=== PATIENT | male | born 1940 | race Two or more races ===

== ENCOUNTER → 2022-01-19 | Outpatient (CLI) | payer OTHER ==
[2022-01-19 08:38] LABS: Basophils # (auto) 0 10 ^3/uL (0-0.2); Basophils % (auto) 0.7 % (0.0-2.0); Lymphocytes # (auto) 0.9 10 ^3/uL (0.4-5.4); Mean Corpuscular Hgb Conc. 35.2 g/dL (32.0-36.0); Neutrophils # (auto) 4.1 10 ^3/uL (1.6-8.6); Nucleated Red Blood Cells % 0.1 %
[2022-01-19 08:40] LABS: Eosinophils # (auto) 0.3 10 ^3/uL (0-0.8); Eosinophils % (auto) 4.4 % (0.0-7.0); Hematocrit 43.7 % (41.0-53.0); Hemoglobin 15.4 g/dL (13.5-17.5); Lymphocytes % (auto) 15.8 % (10.0-50.0); Mean Corpuscular Hemoglobin 35.1 pg (28.0-32.0); Mean Corpuscular Volume 99.7 fL (80.0-100.0); Monocytes # (auto) 0.6 10 ^3/uL (0-1.3); Monocytes % (auto) 9.5 % (0.0-12.0); Neutrophils % (auto) 69.6 % (37.0-80.0); Red Blood Cells 4.38 10^6/uL (4.5-5.90); Red Cell Distribution Width 13.1 % (11.8-14.3); White Blood Cell 5.9 10^3/uL (4.4-10.8)
[2022-01-19 09:09] LABS: Calcium 9.5 mg/dL (8.5-10.1); Potassium 4.2 mmol/L (3.5-5.1)
[2022-01-19 09:15] LABS: Bilirubin, Total 0.5 mg/dL (0.2-1.0); Total Protein 7.4 g/dL (6.4-8.2)
== END | disposition home or self-care (01) ==
LOC: LAB 08:20
PROVIDERS: ATTEND Internal Medicine
DX: E55.9 Vitamin D deficiency, unspecified (principal)
CPT/HCPCS: 36415; 80053; 80061; 82306; 84443; 85025

== ENCOUNTER 2022-08-14 16:20 | Inpatient (IN) | payer OTHER ==
[~2022-08-14] VITALS: Ht 172.7 cm; Wt 91.0 kg
[2022-08-14 17:31] LABS: Eosinophils # (auto) 0.1 10 ^3/uL (0-0.8); Lymphocytes # (auto) 1.1 10 ^3/uL (0.4-5.4); Neutrophils # (auto) 5.4 10 ^3/uL (1.6-8.6)
[2022-08-14 17:34] LABS: Basophils # (auto) 0.2 10 ^3/uL (0-0.2); Basophils % (auto) 3.1 % (0.0-2.0); Eosinophils % (auto) 1.6 % (0.0-7.0); Hematocrit 25.1 % (41.0-53.0); Hemoglobin 8.9 g/dL (13.5-17.5); Lymphocytes % (auto) 13.6 % (10.0-50.0); Mean Corpuscular Hemoglobin 36.4 pg (28.0-32.0); Mean Corpuscular Hgb Conc. 35.5 g/dL (32.0-36.0); Mean Corpuscular Volume 102.5 fL (80.0-100.0); Monocytes # (auto) 1.1 10 ^3/uL (0-1.3); Monocytes % (auto) 14.1 % (0.0-12.0); Neutrophils % (auto) 67.6 % (37.0-80.0); Nucleated Red Blood Cells % 0.3 %; Red Blood Cells 2.45 10^6/uL (4.5-5.90); Red Cell Distribution Width 18.2 % (11.8-14.3)
[2022-08-14 17:41] LABS: Albumin 3.2 g/dL (3.4-5.0); Calcium 7.6 mg/dL (8.5-10.1); Potassium 4.6 mmol/L (3.5-5.1)
[2022-08-14 17:45] LABS: BUN/Creatinine Ratio 16.5 (10.0-20.0); Bilirubin, Total 0.8 mg/dL (0.2-1.0); Total Protein 5.7 g/dL (6.4-8.2)
[2022-08-14] MEDS ORDERED: SODIUM CHLORIDE 0.9% 1,000 ML IV ONE (18:00)
[2022-08-14 20:09] LABS: Urine WBC None Seen /hpf (0 - 3)
[2022-08-14] MEDS ORDERED: SODIUM CHLORIDE 0.9% 1,000 ML IV SCH (20:30)
[2022-08-14 20:31] LABS: Urine Bacteria FEW /hpf (None Seen); Urine Blood Negative /uL (Negative); Urine Mucus FEW (None Seen); Urine Specific Gravity 1.004 (1.001-1.035)
[2022-08-14] MEDS ORDERED: AMLO-496 PO (20:32)
[2022-08-14] MEDS ORDERED: AMOX500C2 PO (20:32)
[2022-08-14] MEDS ORDERED: IBUP600T28 PO (20:32)
[2022-08-14] MEDS ORDERED: IRBE150T49 (20:32)
[2022-08-14] MEDS ORDERED: FUR20T PO (20:32)
[2022-08-14] MEDS ORDERED: MET25T (20:32)
[2022-08-14 21:36] LABS: Cholesterol 88 mg/dL (< 200)
[2022-08-14 21:37] LABS: Alcohol, Urine < 3.0 mg/dL (0-10); Amphetamine Screen, Urine NEGATIVE (NEGATIVE); Barbiturate Scree,Urine NEGATIVE (NEGATIVE); Benzodiazephine Screen, Urine NEGATIVE (NEGATIVE); Cannabinoid Screen, Urine NEGATIVE (NEGATIVE); Cocaine Screen, Urine NEGATIVE (NEGATIVE); Opiate Scree,Urine NEGATIVE (NEGATIVE); Phencyclidine Screen, Urine NEGATIVE (NEGATIVE)
[2022-08-14 21:41] LABS: HDL Cholesterol 5 mg/dL (40-59); Triglycerides 619 mg/dL (< 150)
[2022-08-15] MEDS ORDERED: ALBUTEROL SULF 2.5 MG/0.5ML(0.5%) NEB SOLN ONE (03:35)
[2022-08-15 03:50] VITALS: BP 118/49
[2022-08-15] MEDS: ALBUTEROL SULF 2.5 MG/0.5ML(0.5%) NEB SOLN NEB PRN ×3 (03:50→19:26)
[2022-08-15 07:21] LABS: Hemoglobin 9.4 g/dL (13.5-17.5); Red Blood Cells 2.54 10^6/uL (4.5-5.90); White Blood Cell 9.2 10^3/uL (4.4-10.8)
[2022-08-15 07:24] LABS: Hematocrit 26.6 % (41.0-53.0); Mean Corpuscular Hemoglobin 36.9 pg (28.0-32.0); Mean Corpuscular Hgb Conc. 35.3 g/dL (32.0-36.0); Mean Corpuscular Volume 104.5 fL (80.0-100.0); Red Cell Distribution Width 18.1 % (11.8-14.3)
[2022-08-15 07:26] LABS: Band Neutrophils % (manual) 0; Basophils % (manual) 0 (0.0-2.0); Blast Cells 0; Metamyelocytes % 0; Myelocytes % 0; Promyelocytes % 0; Reactive Lymphocytes 0
[2022-08-15 07:46] LABS: Albumin 3.3 g/dL (3.4-5.0); Calcium 7.8 mg/dL (8.5-10.1); Potassium 4.7 mmol/L (3.5-5.1)
[2022-08-15 07:50] LABS: Bilirubin, Total 1.1 mg/dL (0.2-1.0); Total Protein 5.8 g/dL (6.4-8.2)
[2022-08-15 08:18] LABS: Eosinophils % (manual) 4 (0-7); Lymphocytes % (manual) 19 (10.0-50.0); Monocytes % (manual) 10 (0-12)
[2022-08-15] MEDS ORDERED: ENOXAPARIN SOD 40 MG/0.4 ML SYRINGE SC SCH (10:00)
[2022-08-15] MEDS ORDERED: levoFLOXacin 500 MG TAB PO ONE (10:45)
[2022-08-15] MEDS ORDERED: FUROSEMIDE 40 MG/4 ML VIAL IV ONE (10:45)
[2022-08-15 11:25] LABS: Protein, Urine 24.1 mg/dL (0.0-11.9)
[2022-08-15] MEDS: guaiFENesin-CODEINE Liq 5 ML UD PO PRN (17:56)
[2022-08-15 18:12] LABS: Calcium 8.1 mg/dL (8.5-10.1); Potassium 4.3 mmol/L (3.5-5.1)
[2022-08-15] MEDS: METOPROLOL SUCCINATE XL 50 MG TAB PO SCH (18:23)
[2022-08-15] MEDS: amLODIPine BESYLATE 5 MG TAB PO SCH (18:24)
[2022-08-15] MEDS: FUROSEMIDE 20 MG TAB PO SCH (18:24)
[2022-08-15] MEDS: ACETAMINOPHEN 325 MG TAB PO PRN (20:29)
[2022-08-16] MEDS: guaiFENesin-CODEINE Liq 5 ML UD PO PRN (01:02)
[2022-08-16 07:08] VITALS: BP 141/69
[2022-08-16 07:24] LABS: Potassium 5.1 mmol/L (3.5-5.1)
[2022-08-16 07:25] LABS: BUN/Creatinine Ratio 15.2 (10.0-20.0); Magnesium 2.6 mg/dL (1.6-2.6)
[2022-08-16 09:00] VITALS: BP 104/52
[2022-08-16] MEDS: FUROSEMIDE 20 MG TAB PO SCH (10:00)
[2022-08-16] MEDS: METOPROLOL SUCCINATE XL 50 MG TAB PO SCH (10:00)
[2022-08-16] MEDS ORDERED: levoFLOXacin 500 MG TAB PO SCH (10:00)
[2022-08-16] MEDS: amLODIPine BESYLATE 5 MG TAB PO SCH (10:00)
[2022-08-16 13:00] VITALS: BP 119/53
[2022-08-16 16:50] VITALS: BP 112/51
[2022-08-16] MEDS ORDERED: ALBUAER3 IN (17:28)
[2022-08-16] MEDS: ACETAMINOPHEN 325 MG TAB PO PRN (19:00)
[2022-08-16 19:51] VITALS: BP 141/69
== END 2022-08-16 20:43 | disposition home or self-care (01) | DRG 640 ==
LOC: ER 16:20 → OVERFLOW 20:30 → WEST WING 08-16 04:35
PROVIDERS: ADMIT Nurse Practitioner Family; ATTEND Internal Medicine
DX: E87.1 Hypo-osmolality and hyponatremia (principal); I50.41 Acute combined systolic (congestive) and diastolic (congestive) heart failure; E46 Unspecified protein-calorie malnutrition; R63.1 Polydipsia; I11.0 Hypertensive heart disease with heart failure; I08.0 Rheumatic disorders of both mitral and aortic valves; R73.9 Hyperglycemia, unspecified; R82.4 Acetonuria; E83.51 Hypocalcemia; F03.90 Unspecified dementia, unspecified severity, without behavioral disturbance, psychotic disturbance, mood disturbance, and anxiety; D75.89 Other specified diseases of blood and blood-forming organs; D69.6 Thrombocytopenia, unspecified; D64.9 Anemia, unspecified; Z68.30 Body mass index [BMI] 30.0-30.9, adult
CPT/HCPCS: 36415; 71045; 71250; 80048; 80053; 80061; 80307; 81001; 82140; 82570; 82607; 82962; 83036; 83605; 83735; 83880; 83930; 83935; 84156; 84300; 84443; 84484; 84550; 85007; 85025; 85027; 93005; 93306; 93886; 94640; 96360; 97163; 99291; G0378

== ENCOUNTER → 2022-08-22 | Outpatient (CLI) | payer OTHER ==
[~2022-08-22] MED LIST: ALBUAER3 IN; AMLO1TAB23 PO; FUR20T PO; IRBE150T49; MET25T
[2022-08-22 12:14] LABS: Potassium 4.1 mmol/L (3.5-5.1)
[2022-08-22 12:20] LABS: BUN/Creatinine Ratio 20.1 (10.0-20.0); Calcium 8.2 mg/dL (8.5-10.1)
== END | disposition home or self-care (01) ==
LOC: LAB 11:19
PROVIDERS: ATTEND Internal Medicine
DX: E87.1 Hypo-osmolality and hyponatremia (principal)
CPT/HCPCS: 36415; 80048

== ENCOUNTER → 2022-09-04 | Outpatient (CLI) | payer OTHER ==
[2022-09-04 12:40] LABS: Potassium 4.1 mmol/L (3.5-5.1)
[2022-09-04 12:47] LABS: Albumin 3.1 g/dL (3.4-5.0); BUN/Creatinine Ratio 16.7 (10.0-20.0); Bilirubin, Total 0.7 mg/dL (0.2-1.0); Calcium 8.4 mg/dL (8.5-10.1); Total Protein 5.6 g/dL (6.4-8.2)
== END | disposition home or self-care (01) ==
LOC: LAB 11:55
PROVIDERS: ATTEND Internal Medicine
DX: E87.1 Hypo-osmolality and hyponatremia (principal); E83.50 Unspecified disorder of calcium metabolism
CPT/HCPCS: 36415; 80053

== ENCOUNTER 2022-09-17 23:06 | Inpatient (IN) | payer OTHER ==
[~2022-09-17] VITALS: Ht 170.2 cm; Wt 114.9 kg
[2022-09-18] VITALS (7 sets, daily range): BP systolic 89–125; BP diastolic 40–84
[2022-09-18 05:56] LABS: Hematocrit 25.8 % (41.0-53.0); Hemoglobin 8.7 g/dL (13.5-17.5); Mean Corpuscular Hemoglobin 36.2 pg (28.0-32.0); Mean Corpuscular Hgb Conc. 33.6 g/dL (32.0-36.0); Mean Corpuscular Volume 107.6 fL (80.0-100.0); White Blood Cell 14.9 10^3/uL (4.4-10.8)
[2022-09-18 06:02] LABS: Red Cell Distribution Width 23.5 % (11.8-14.3)
[2022-09-18 06:03] LABS: Basophils % (manual) 0 (0.0-2.0); Blast Cells 0; Promyelocytes % 0; Reactive Lymphocytes 0
[2022-09-18 06:14] LABS: Albumin 3.2 g/dL (3.4-5.0); Calcium 8.3 mg/dL (8.5-10.1); Potassium 4.8 mmol/L (3.5-5.1)
[2022-09-18 06:18] LABS: BUN/Creatinine Ratio 18.5 (10.0-20.0); Bilirubin, Total 1.2 mg/dL (0.2-1.0); Total Protein 5.1 g/dL (6.4-8.2)
[2022-09-18] MEDS: ALBUTEROL SULF 2.5 MG/0.5ML(0.5%) NEB SOLN NEB PRN ×2 (07:59→11:27)
[2022-09-18 08:27] LABS: Band Neutrophils % (manual) 7; Eosinophils % (manual) 1 (0-7); Lymphocytes % (manual) 7 (10.0-50.0); Metamyelocytes % 7; Monocytes % (manual) 11 (0-12); Myelocytes % 5
[2022-09-18] MEDS ORDERED: PANTOPRAZOLE 40 MG TAB PO SCH (10:00)
[2022-09-18 10:58] LABS: % Iron Saturation 15.7 % (20-55)
[2022-09-18] MEDS: SERTRALINE HCL 50 MG TAB PO SCH (11:09)
[2022-09-18] MEDS: amLODIPine BESYLATE 5 MG TAB PO SCH (11:10)
[2022-09-18] MEDS: FUROSEMIDE 20 MG TAB PO SCH (11:11)
[2022-09-18] MEDS: METOPROLOL SUCCINATE XL 50 MG TAB PO SCH (11:11)
[2022-09-18] MEDS ORDERED: cefTRIAXone 1GM/50ML D5W 50 ML IV ONE (11:15)
[2022-09-18] MEDS ORDERED: LACTULOSE 20Gm/30ML SOLN PO ONE (11:15)
[2022-09-18] MEDS: ACETAMINOPHEN 325 MG TAB PO PRN (11:20)
[2022-09-18] MEDS: SODIUM CHLORIDE 0.9% 1,000 ML IV SCH (11:25)
[2022-09-18 11:31] LABS: Folate (Folic Acid) > 24.00 ng/mL (5.38-24)
[2022-09-18 16:37] LABS: Urine Bacteria NONE SEEN /hpf (None Seen); Urine Blood Negative /uL (Negative); Urine Hyaline Cast FEW /lpf (0 - 2); Urine Mucus FEW (None Seen); Urine Specific Gravity 1.016 (1.001-1.035); Urine WBC 2 /hpf (0 - 3)
[2022-09-18 16:57] LABS: Creatinine, Urine 100 mg/dL (30.0-125.0); Sodium Urine 34 mmol/L (40-220)
[2022-09-19] VITALS (7 sets, daily range): BP systolic 85–129; BP diastolic 30–78
[2022-09-19] MEDS: ACETAMINOPHEN 325 MG TAB PO PRN ×2 (02:29→12:55)
[2022-09-19] MEDS: SODIUM CHLORIDE 0.9% 1,000 ML IV SCH ×4 (04:17→21:15)
[2022-09-19 05:57] LABS: White Blood Cell 12.6 10^3/uL (4.4-10.8)
[2022-09-19 05:59] LABS: Hematocrit 23.4 % (41.0-53.0); Hemoglobin 7.8 g/dL (13.5-17.5); Mean Corpuscular Hemoglobin 35.9 pg (28.0-32.0); Mean Corpuscular Hgb Conc. 33.5 g/dL (32.0-36.0); Red Blood Cells 2.18 10^6/uL (4.5-5.90)
[2022-09-19 06:03] LABS: Red Cell Distribution Width 23.8 % (11.8-14.3)
[2022-09-19 06:04] LABS: Band Neutrophils % (manual) 0; Basophils % (manual) 0 (0.0-2.0); Blast Cells 0; Metamyelocytes % 0; Promyelocytes % 0; Reactive Lymphocytes 0
[2022-09-19 06:14] LABS: Calcium 7.8 mg/dL (8.5-10.1); Potassium 4.4 mmol/L (3.5-5.1)
[2022-09-19 06:19] LABS: Albumin 2.8 g/dL (3.4-5.0); BUN/Creatinine Ratio 21.3 (10.0-20.0); Bilirubin, Total 1.1 mg/dL (0.2-1.0); Magnesium 3.1 mg/dL (1.6-2.6)
[2022-09-19 08:39] LABS: Eosinophils % (manual) 1 (0-7); Lymphocytes % (manual) 25 (10.0-50.0); Monocytes % (manual) 9 (0-12); Myelocytes % 1
[2022-09-19] MEDS: cefTRIAXone 1GM/50ML D5W 50 ML IV SCH (08:54)
[2022-09-19] MEDS: amLODIPine BESYLATE 5 MG TAB PO SCH (08:56)
[2022-09-19] MEDS: SERTRALINE HCL 50 MG TAB PO SCH (08:56)
[2022-09-19] MEDS: FUROSEMIDE 20 MG TAB PO SCH (08:57)
[2022-09-19] MEDS: METOPROLOL SUCCINATE XL 50 MG TAB PO SCH (08:57)
[2022-09-19] MEDS ORDERED: PANTOPRAZOLE 40 MG TAB PO SCH (10:00)
[2022-09-19] MEDS ORDERED: LACTULOSE 20Gm/30ML SOLN PO ONE (10:00)
[2022-09-19] MEDS ORDERED: SODIUM CHLORIDE 0.9% 500 ML IV ONE (16:30)
[2022-09-19] MEDS ORDERED: FUROSEMIDE 40 MG/4 ML VIAL IV ONE (20:15)
[2022-09-19 20:33] LABS: Basophils # (auto) 1.6 10 ^3/uL (0-0.2); Basophils % (auto) 14.3 % (0.0-2.0); Eosinophils # (auto) 0.1 10 ^3/uL (0-0.8); Eosinophils % (auto) 1.2 % (0.0-7.0); Hematocrit 23.3 % (41.0-53.0); Hemoglobin 7.7 g/dL (13.5-17.5); Lymphocytes # (auto) 1.8 10 ^3/uL (0.4-5.4); Lymphocytes % (auto) 15.6 % (10.0-50.0); Mean Corpuscular Hemoglobin 35.6 pg (28.0-32.0); Mean Corpuscular Hgb Conc. 33.2 g/dL (32.0-36.0); Mean Corpuscular Volume 107.5 fL (80.0-100.0); Monocytes # (auto) 2.1 10 ^3/uL (0-1.3); Monocytes % (auto) 18.4 % (0.0-12.0); Neutrophils # (auto) 5.7 10 ^3/uL (1.6-8.6); Neutrophils % (auto) 50.5 % (37.0-80.0); Nucleated Red Blood Cells % 0.5 %; Red Blood Cells 2.17 10^6/uL (4.5-5.90); Red Cell Distribution Width 23.6 % (11.8-14.3); White Blood Cell 11.3 10^3/uL (4.4-10.8)
[2022-09-19 20:49] LABS: Albumin 2.9 g/dL (3.4-5.0); Calcium 7.6 mg/dL (8.5-10.1)
[2022-09-19 20:52] LABS: BUN/Creatinine Ratio 23.3 (10.0-20.0); Total Protein 4.9 g/dL (6.4-8.2)
[2022-09-19] MEDS: PANTOPRAZOLE 40 MG TAB PO SCH (22:32)
[2022-09-19] MEDS: ALBUTEROL SULF 2.5 MG/0.5ML(0.5%) NEB SOLN NEB PRN (23:15)
[2022-09-20 05:00] VITALS: BP 98/40
[2022-09-20 05:49] VITALS: BP 122/56
[2022-09-20 05:53] LABS: Hematocrit 23.5 % (41.0-53.0); Hemoglobin 7.9 g/dL (13.5-17.5); Mean Corpuscular Hemoglobin 35.7 pg (28.0-32.0); Mean Corpuscular Hgb Conc. 33.4 g/dL (32.0-36.0); Mean Corpuscular Volume 106.9 fL (80.0-100.0); White Blood Cell 13.1 10^3/uL (4.4-10.8)
[2022-09-20 05:56] LABS: Red Cell Distribution Width 23.8 % (11.8-14.3)
[2022-09-20] MEDS: ACETAMINOPHEN 325 MG TAB PO PRN (05:56)
[2022-09-20 05:58] LABS: Basophils % (manual) 0 (0.0-2.0); Blast Cells 0; Promyelocytes % 0; Reactive Lymphocytes 0
[2022-09-20 06:02] LABS: INR 1.39 (0.9-1.15); Partial Thromboplastin Time 33.3 SEC (24.5-34.5)
[2022-09-20 06:05] LABS: Potassium 4.2 mmol/L (3.5-5.1)
[2022-09-20 06:11] LABS: BUN/Creatinine Ratio 22.1 (10.0-20.0); Calcium 7.8 mg/dL (8.5-10.1); Magnesium 2.6 mg/dL (1.6-2.6)
[2022-09-20] MEDS: ALBUTEROL SULF 2.5 MG/0.5ML(0.5%) NEB SOLN NEB PRN ×2 (06:29→16:24)
[2022-09-20] MEDS ORDERED: IBUPROFEN 600 MG TAB PO ONE (07:45)
[2022-09-20] MEDS ORDERED: SODIUM CHLORIDE 0.9% 500 ML IV ONE (07:45)
[2022-09-20 07:46] LABS: Band Neutrophils % (manual) 3; Eosinophils % (manual) 1 (0-7); Lymphocytes % (manual) 14 (10.0-50.0); Metamyelocytes % 8; Monocytes % (manual) 4 (0-12); Myelocytes % 1
[2022-09-20 08:00] VITALS: BP 115/61
[2022-09-20 08:53] LABS: Hepatitis B Surface Antibody Negative (Negative)
[2022-09-20 09:06] LABS: Ferritin > 1650.0 ng/mL (10-322)
[2022-09-20 09:16] LABS: Hepatitis A Total Antibody Negative (Negative)
[2022-09-20 09:59] LABS: Hepatitis C Antibody Negative (Negative)
[2022-09-20] MEDS: METOPROLOL SUCCINATE XL 50 MG TAB PO SCH (10:54)
[2022-09-20] MEDS: FUROSEMIDE 20 MG TAB PO SCH (10:55)
[2022-09-20] MEDS: amLODIPine BESYLATE 5 MG TAB PO SCH (10:56)
[2022-09-20] MEDS: SERTRALINE HCL 50 MG TAB PO SCH (10:57)
[2022-09-20] MEDS: PANTOPRAZOLE 40 MG TAB PO SCH ×2 (10:57→22:48)
[2022-09-20] MEDS: cefTRIAXone 1GM/50ML D5W 50 ML IV SCH (10:57)
[2022-09-20 12:00] VITALS: BP 125/74
[2022-09-20] MEDS ORDERED: LIDOCAINE 2%HCL (LOCAL ANESTH.) INJ 10ml MDV ONE (13:20)
[2022-09-20] MEDS ORDERED: MIDAZOLAM HCL 2MG/2ML 2ml VIAL (1mg/ml) IV ONE (13:30)
[2022-09-20] MEDS ORDERED: fentaNYL CITRATE 100 MCG/2 ML VL IV ONE (13:30)
[2022-09-20 16:00] VITALS: BP 124/64
[2022-09-20] MEDS: SODIUM CHLORIDE 0.9% 1,000 ML IV SCH (19:10)
[2022-09-20] MEDS ORDERED: ALBUTEROL SULF 2.5 MG/0.5ML(0.5%) NEB SOLN NEB PRN (21:00)
[2022-09-20] MEDS ORDERED: IPRATROPIUM BROM 0.5 MG/2.5ML INH SOL NEB PRN (21:00)
[2022-09-20 22:00] VITALS: BP 116/53
[2022-09-20] MEDS: METOPROLOL TARTRATE 25 MG TAB PO SCH (22:00)
[2022-09-20 22:09] LABS: Cholesterol 72 mg/dL (< 200)
[2022-09-20 22:12] LABS: HDL Cholesterol 14 mg/dL (40-59); LDL Cholesterol 29 mg/dL (< 100); Triglycerides 241 mg/dL (< 150)
[2022-09-21] VITALS (7 sets, daily range): BP systolic 105–114; BP diastolic 45–84
[2022-09-21] MEDS: ALBUTEROL SULF 2.5 MG/0.5ML(0.5%) NEB SOLN NEB SCH ×4 (00:19→18:40)
[2022-09-21] MEDS: IPRATROPIUM BROM 0.5 MG/2.5ML INH SOL NEB SCH ×4 (00:19→18:40)
[2022-09-21] MEDS: METOPROLOL TARTRATE 25 MG TAB PO SCH ×3 (05:51→22:51)
[2022-09-21 06:13] LABS: Hematocrit 22.1 % (41.0-53.0); Hemoglobin 7.6 g/dL (13.5-17.5); Mean Corpuscular Hemoglobin 36.5 pg (28.0-32.0); Mean Corpuscular Hgb Conc. 34.1 g/dL (32.0-36.0); Red Blood Cells 2.07 10^6/uL (4.5-5.90); White Blood Cell 12.6 10^3/uL (4.4-10.8)
[2022-09-21 06:26] LABS: Potassium 4.4 mmol/L (3.5-5.1)
[2022-09-21 06:29] LABS: Red Cell Distribution Width 23.8 % (11.8-14.3)
[2022-09-21 06:30] LABS: Basophils % (manual) 0 (0.0-2.0); Blast Cells 0; Metamyelocytes % 0; Myelocytes % 0; Promyelocytes % 0; Reactive Lymphocytes 0
[2022-09-21 06:36] LABS: Albumin 2.8 g/dL (3.4-5.0); BUN/Creatinine Ratio 22.5 (10.0-20.0); Calcium 7.3 mg/dL (8.5-10.1); Total Protein 4.6 g/dL (6.4-8.2)
[2022-09-21] MEDS: traMADol HCL 50 MG TAB PO PRN (08:59)
[2022-09-21] MEDS: cefTRIAXone 1GM/50ML D5W 50 ML IV SCH (09:00)
[2022-09-21 09:25] LABS: Band Neutrophils % (manual) 6; Eosinophils % (manual) 2 (0-7); Lymphocytes % (manual) 19 (10.0-50.0); Monocytes % (manual) 25 (0-12)
[2022-09-21] MEDS: PANTOPRAZOLE 40 MG TAB PO SCH ×2 (09:42→23:08)
[2022-09-21] MEDS: SERTRALINE HCL 50 MG TAB PO SCH (09:43)
[2022-09-21] MEDS: amLODIPine BESYLATE 5 MG TAB PO SCH (09:43)
[2022-09-21] MEDS ORDERED: FUROSEMIDE 20 MG/2 ML VIAL IV SCH (10:00)
[2022-09-21] MEDS ORDERED: MULTIPLE VITAMIN TAB PO ONE (11:15)
[2022-09-21] MEDS: FERROUS SULFATE 325mg EC TAB PO SCH (19:25)
[2022-09-22] MEDS: ALBUTEROL SULF 2.5 MG/0.5ML(0.5%) NEB SOLN NEB SCH ×5 (01:18→23:47)
[2022-09-22] MEDS: IPRATROPIUM BROM 0.5 MG/2.5ML INH SOL NEB SCH ×5 (01:18→23:47)
[2022-09-22] MEDS: traMADol HCL 50 MG TAB PO PRN ×3 (01:29→21:41)
[2022-09-22] MEDS: ONDANSETRON HCL 4 MG/2 ML VIAL IV PRN ×2 (02:15→23:57)
[2022-09-22] MEDS ORDERED: guaiFENesin-DM 100/10mg/5ml SYR PO PRN (02:45)
[2022-09-22 05:00] VITALS: BP 122/53
[2022-09-22 06:18] LABS: BUN/Creatinine Ratio 24.1 (10.0-20.0); Calcium 7.6 mg/dL (8.5-10.1); Potassium 4.4 mmol/L (3.5-5.1)
[2022-09-22 06:24] LABS: Hematocrit 21.4 % (41.0-53.0); Hemoglobin 7.1 g/dL (13.5-17.5); Mean Corpuscular Hemoglobin 35.4 pg (28.0-32.0); Mean Corpuscular Hgb Conc. 33.3 g/dL (32.0-36.0); Mean Corpuscular Volume 106.4 fL (80.0-100.0); Red Blood Cells 2.01 10^6/uL (4.5-5.90)
[2022-09-22 06:41] LABS: Red Cell Distribution Width 23.4 % (11.8-14.3)
[2022-09-22 06:43] LABS: Basophils % (manual) 0 (0.0-2.0); Blast Cells 0; Metamyelocytes % 0; Myelocytes % 0; Promyelocytes % 0; Reactive Lymphocytes 0
[2022-09-22] MEDS: METOPROLOL TARTRATE 25 MG TAB PO SCH ×3 (07:05→22:00)
[2022-09-22] MEDS: FERROUS SULFATE 325mg EC TAB PO SCH ×2 (08:20→18:29)
[2022-09-22] MEDS: cefTRIAXone 1GM/50ML D5W 50 ML IV SCH (08:25)
[2022-09-22 08:43] LABS: Band Neutrophils % (manual) 4; Eosinophils % (manual) 1 (0-7); Lymphocytes % (manual) 15 (10.0-50.0); Monocytes % (manual) 26 (0-12)
[2022-09-22 09:00] VITALS: BP 124/64
[2022-09-22] MEDS ORDERED: FUROSEMIDE 40 MG/4 ML VIAL IV SCH (10:00)
[2022-09-22] MEDS: SERTRALINE HCL 50 MG TAB PO SCH (10:22)
[2022-09-22] MEDS: amLODIPine BESYLATE 5 MG TAB PO SCH (10:22)
[2022-09-22] MEDS: MULTIPLE VITAMIN TAB PO SCH (10:23)
[2022-09-22] MEDS: PANTOPRAZOLE 40 MG TAB PO SCH ×2 (10:23→22:00)
[2022-09-22 13:00] VITALS: BP 108/58
[2022-09-22 17:00] VITALS: BP 112/77
[2022-09-22] MEDS: APIXABAN 2.5 MG TAB PO SCH (21:41)
[2022-09-22 22:00] VITALS: BP 127/58
[2022-09-23 05:00] VITALS: BP 123/54
[2022-09-23] MEDS: ALBUTEROL SULF 2.5 MG/0.5ML(0.5%) NEB SOLN NEB SCH ×3 (06:28→19:05)
[2022-09-23] MEDS: IPRATROPIUM BROM 0.5 MG/2.5ML INH SOL NEB SCH ×3 (06:28→19:06)
[2022-09-23 06:38] LABS: Hematocrit 21.6 % (41.0-53.0); Hemoglobin 7.2 g/dL (13.5-17.5); Mean Corpuscular Hemoglobin 35.5 pg (28.0-32.0); Mean Corpuscular Hgb Conc. 33.4 g/dL (32.0-36.0); Mean Corpuscular Volume 106.4 fL (80.0-100.0); Red Blood Cells 2.03 10^6/uL (4.5-5.90); White Blood Cell 17.4 10^3/uL (4.4-10.8)
[2022-09-23 06:45] LABS: BUN/Creatinine Ratio 21.8 (10.0-20.0); Calcium 7.8 mg/dL (8.5-10.1)
[2022-09-23 07:19] LABS: Red Cell Distribution Width 22.6 % (11.8-14.3)
[2022-09-23 07:21] LABS: Basophils % (manual) 0 (0.0-2.0); Blast Cells 0; Eosinophils % (manual) 0 (0-7); Metamyelocytes % 0; Myelocytes % 0; Promyelocytes % 0
[2022-09-23] MEDS: FERROUS SULFATE 325mg EC TAB PO SCH ×2 (08:45→18:15)
[2022-09-23] MEDS: cefTRIAXone 1GM/50ML D5W 50 ML IV SCH (08:45)
[2022-09-23 08:51] VITALS: BP 122/47
[2022-09-23 08:53] LABS: Lymphocytes % (manual) 11 (10.0-50.0); Monocytes % (manual) 23 (0-12); Reactive Lymphocytes 2
[2022-09-23 08:54] LABS: Band Neutrophils % (manual) 6
[2022-09-23] MEDS ORDERED: SODIUM CHLORIDE 0.9% 250 ML IV ONE (09:00)
[2022-09-23] MEDS: SODIUM CHLORIDE 0.9% 1,000 ML IV SCH (09:00)
[2022-09-23] MEDS: APIXABAN 2.5 MG TAB PO SCH ×2 (10:15→21:55)
[2022-09-23] MEDS: PANTOPRAZOLE 40 MG TAB PO SCH ×2 (10:15→22:00)
[2022-09-23] MEDS: SERTRALINE HCL 50 MG TAB PO SCH (10:15)
[2022-09-23] MEDS: amLODIPine BESYLATE 5 MG TAB PO SCH (10:15)
[2022-09-23] MEDS: MULTIPLE VITAMIN TAB PO SCH (10:15)
[2022-09-23] MEDS: traMADol HCL 50 MG TAB PO PRN (12:26)
[2022-09-23] MEDS: METOPROLOL TARTRATE 25 MG TAB PO SCH ×2 (14:22→22:00)
[2022-09-23 17:02] VITALS: BP 117/48
[2022-09-23 22:00] VITALS: BP 107/51
[2022-09-24] VITALS (9 sets, daily range): BP systolic 95–155; BP diastolic 37–99
[2022-09-24] MEDS: ONDANSETRON HCL 4 MG/2 ML VIAL IV PRN (00:20)
[2022-09-24] MEDS: IPRATROPIUM BROM 0.5 MG/2.5ML INH SOL NEB SCH ×4 (00:50→19:57)
[2022-09-24] MEDS: ALBUTEROL SULF 2.5 MG/0.5ML(0.5%) NEB SOLN NEB SCH ×4 (00:50→19:57)
[2022-09-24] MEDS: SODIUM CHLORIDE 0.9% 1,000 ML IV SCH (01:40)
[2022-09-24] MEDS: traMADol HCL 50 MG TAB PO PRN ×2 (05:11→16:19)
[2022-09-24] MEDS: METOPROLOL TARTRATE 25 MG TAB PO SCH ×3 (05:13→21:57)
[2022-09-24 08:10] LABS: Hematocrit 20.8 % (41.0-53.0); Mean Corpuscular Hgb Conc. 32.2 g/dL (32.0-36.0)
[2022-09-24 08:12] LABS: Mean Corpuscular Hemoglobin 35.6 pg (28.0-32.0); Mean Corpuscular Volume 110.5 fL (80.0-100.0); Red Blood Cells 1.88 10^6/uL (4.5-5.90); White Blood Cell 13.6 10^3/uL (4.4-10.8)
[2022-09-24 08:20] LABS: Red Cell Distribution Width 24.2 % (11.8-14.3)
[2022-09-24 08:22] LABS: Hemoglobin 6.7 g/dL (13.5-17.5)
[2022-09-24 08:23] LABS: Band Neutrophils % (manual) 0; Basophils % (manual) 0 (0.0-2.0); Blast Cells 0; Eosinophils % (manual) 0 (0-7); Metamyelocytes % 0; Promyelocytes % 0; Reactive Lymphocytes 0
[2022-09-24 08:31] LABS: Albumin 2.4 g/dL (3.4-5.0); BUN/Creatinine Ratio 21.9 (10.0-20.0); Calcium 7.6 mg/dL (8.5-10.1); Magnesium 2.9 mg/dL (1.6-2.6); Potassium 4.4 mmol/L (3.5-5.1); Uric Acid 14.2 mg/dL (3.5-7.2)
[2022-09-24 08:35] LABS: Bilirubin, Total 0.8 mg/dL (0.2-1.0); Phosphorus 5.3 mg/dL (2.5-4.90); Total Protein 4.8 g/dL (6.4-8.2)
[2022-09-24] MEDS: MULTIPLE VITAMIN TAB PO SCH (08:56)
[2022-09-24] MEDS: FERROUS SULFATE 325mg EC TAB PO SCH ×2 (08:57→18:07)
[2022-09-24] MEDS: PANTOPRAZOLE 40 MG TAB PO SCH ×2 (08:57→21:57)
[2022-09-24] MEDS: SERTRALINE HCL 50 MG TAB PO SCH (08:57)
[2022-09-24] MEDS: amLODIPine BESYLATE 5 MG TAB PO SCH (08:59)
[2022-09-24] MEDS: cefTRIAXone 1GM/50ML D5W 50 ML IV SCH (09:00)
[2022-09-24 09:48] LABS: Lymphocytes % (manual) 22 (10.0-50.0); Monocytes % (manual) 1 (0-12); Myelocytes % 4
[2022-09-24 09:51] LABS: % Iron Saturation 37.2 % (20-55)
[2022-09-24 09:59] LABS: Ferritin > 1650.0 ng/mL (10-322)
[2022-09-24 10:00] LABS: Folate (Folic Acid) > 24.00 ng/mL (5.38-24)
[2022-09-24 12:02] LABS: INR 1.4 (0.9-1.15)
[2022-09-25] MEDS: IPRATROPIUM BROM 0.5 MG/2.5ML INH SOL NEB SCH ×5 (00:11→23:57)
[2022-09-25] MEDS: ALBUTEROL SULF 2.5 MG/0.5ML(0.5%) NEB SOLN NEB SCH ×5 (00:11→23:57)
[2022-09-25 05:00] VITALS: BP 107/56
[2022-09-25 05:59] LABS: Hematocrit 25.2 % (41.0-53.0); Hemoglobin 8.6 g/dL (13.5-17.5); Mean Corpuscular Hemoglobin 33.1 pg (28.0-32.0); Mean Corpuscular Volume 97.3 fL (80.0-100.0); Red Blood Cells 2.59 10^6/uL (4.5-5.90); White Blood Cell 15.6 10^3/uL (4.4-10.8)
[2022-09-25 06:26] LABS: Red Cell Distribution Width 29.4 % (11.8-14.3)
[2022-09-25 06:27] LABS: Basophils % (manual) 0 (0.0-2.0); Blast Cells 0; Eosinophils % (manual) 0 (0-7); Metamyelocytes % 0; Myelocytes % 0; Promyelocytes % 0; Reactive Lymphocytes 0
[2022-09-25 08:05] VITALS: BP 122/46
[2022-09-25 08:10] LABS: Band Neutrophils % (manual) 1; Lymphocytes % (manual) 14 (10.0-50.0); Monocytes % (manual) 16 (0-12)
[2022-09-25 08:55] LABS: BUN/Creatinine Ratio 24.3 (10.0-20.0); Potassium 4.7 mmol/L (3.5-5.1)
[2022-09-25] MEDS: MULTIPLE VITAMIN TAB PO SCH (09:27)
[2022-09-25] MEDS: PANTOPRAZOLE 40 MG/10 ML VIAL INJ IV SCH ×2 (09:27→21:11)
[2022-09-25] MEDS: amLODIPine BESYLATE 5 MG TAB PO SCH (09:28)
[2022-09-25] MEDS: cefTRIAXone 1GM/50ML D5W 50 ML IV SCH (09:34)
[2022-09-25] MEDS: METOPROLOL TARTRATE 25 MG TAB PO SCH ×2 (10:00→21:11)
[2022-09-25] MEDS: traMADol HCL 50 MG TAB PO PRN (10:28)
[2022-09-25] MEDS: SERTRALINE HCL 50 MG TAB PO SCH (10:28)
[2022-09-25] MEDS: FERROUS SULFATE 325mg EC TAB PO SCH ×2 (11:26→18:00)
[2022-09-25 12:05] VITALS: BP 110/40
[2022-09-25 17:06] VITALS: BP 111/44
[2022-09-25 22:00] VITALS: BP 123/52
[2022-09-26 05:00] VITALS: BP 113/51
[2022-09-26 06:22] LABS: Hematocrit 25.4 % (41.0-53.0); Hemoglobin 8.5 g/dL (13.5-17.5); Mean Corpuscular Hemoglobin 33.1 pg (28.0-32.0); Mean Corpuscular Hgb Conc. 33.5 g/dL (32.0-36.0); Mean Corpuscular Volume 98.9 fL (80.0-100.0); Red Blood Cells 2.57 10^6/uL (4.5-5.90); White Blood Cell 14.8 10^3/uL (4.4-10.8)
[2022-09-26 06:39] LABS: Red Cell Distribution Width 29.6 % (11.8-14.3)
[2022-09-26 06:40] LABS: Basophils % (manual) 0 (0.0-2.0); Blast Cells 0; Metamyelocytes % 0; Myelocytes % 0; Promyelocytes % 0; Reactive Lymphocytes 0
[2022-09-26 06:41] LABS: Potassium 4.2 mmol/L (3.5-5.1)
[2022-09-26 06:50] LABS: Albumin 2.5 g/dL (3.4-5.0); BUN/Creatinine Ratio 23.7 (10.0-20.0); Magnesium 2.8 mg/dL (1.6-2.6)
[2022-09-26 06:51] LABS: Bilirubin, Total 1.2 mg/dL (0.2-1.0); Total Protein 4.7 g/dL (6.4-8.2)
[2022-09-26] MEDS: IPRATROPIUM BROM 0.5 MG/2.5ML INH SOL NEB SCH ×3 (07:16→18:29)
[2022-09-26] MEDS: ALBUTEROL SULF 2.5 MG/0.5ML(0.5%) NEB SOLN NEB SCH ×3 (07:16→18:29)
[2022-09-26 08:15] LABS: Band Neutrophils % (manual) 5; Eosinophils % (manual) 2 (0-7); Lymphocytes % (manual) 18 (10.0-50.0); Monocytes % (manual) 3 (0-12)
[2022-09-26 09:00] VITALS: BP 99/49
[2022-09-26] MEDS: amLODIPine BESYLATE 5 MG TAB PO SCH (10:00)
[2022-09-26] MEDS: cefTRIAXone 1GM/50ML D5W 50 ML IV SCH (10:16)
[2022-09-26] MEDS: SERTRALINE HCL 50 MG TAB PO SCH (10:16)
[2022-09-26] MEDS: FERROUS SULFATE 325mg EC TAB PO SCH ×2 (10:17→18:00)
[2022-09-26] MEDS: MULTIPLE VITAMIN TAB PO SCH (10:17)
[2022-09-26] MEDS: PANTOPRAZOLE 40 MG/10 ML VIAL INJ IV SCH ×2 (10:22→22:22)
[2022-09-26] MEDS: METOPROLOL TARTRATE 25 MG TAB PO SCH ×2 (10:22→22:00)
[2022-09-26 13:00] VITALS: BP 141/99
[2022-09-26] MEDS: FUROSEMIDE 40 MG/4 ML VIAL IV SCH (14:54)
[2022-09-26 16:56] VITALS: BP 123/53
[2022-09-26 20:00] VITALS: BP 98/59
[2022-09-26 22:00] VITALS: BP 98/39
[2022-09-27] MEDS: ALBUTEROL SULF 2.5 MG/0.5ML(0.5%) NEB SOLN NEB SCH ×3 (00:46→12:56)
[2022-09-27] MEDS: IPRATROPIUM BROM 0.5 MG/2.5ML INH SOL NEB SCH ×3 (00:46→12:56)
[2022-09-27 05:00] VITALS: BP 101/39
[2022-09-27 06:07] LABS: Potassium 4.2 mmol/L (3.5-5.1)
[2022-09-27] MEDS: FERROUS SULFATE 325mg EC TAB PO SCH ×2 (08:00→09:33)
[2022-09-27 09:00] VITALS: BP 119/45
[2022-09-27] MEDS: PANTOPRAZOLE 40 MG/10 ML VIAL INJ IV SCH (09:24)
[2022-09-27] MEDS: cefTRIAXone 1GM/50ML D5W 50 ML IV SCH (09:25)
[2022-09-27] MEDS: FUROSEMIDE 40 MG/4 ML VIAL IV SCH (09:25)
[2022-09-27] MEDS: SERTRALINE HCL 50 MG TAB PO SCH ×2 (09:33→10:00)
[2022-09-27] MEDS: MULTIPLE VITAMIN TAB PO SCH ×2 (09:33→10:00)
[2022-09-27] MEDS: METOPROLOL TARTRATE 25 MG TAB PO SCH (10:00)
[2022-09-27] MEDS: amLODIPine BESYLATE 5 MG TAB PO SCH (10:00)
[2022-09-27] MEDS ORDERED: MORPHINE SULFATE INJ 2 MG/ml SYRG IV ONE (11:45)
[2022-09-27 13:00] VITALS: BP 119/41
[2022-09-27 14:13] VITALS: BP 119/95
[2022-09-27 15:24] VITALS: BP 119/41
[2022-09-27 16:37] VITALS: BP 110/49
== END 2022-09-27 16:33 | disposition hospice, home (50) | DRG 840 ==
LOC: TELE-EAST 09-18 01:00 → EAST 09-18 06:25 → TELE-EAST 09-19 17:32
PROVIDERS: ADMIT Nurse Practitioner; ATTEND Internal Medicine
PROC: 07DR3ZX Extraction of Iliac Bone Marrow, Percutaneous Approach, Diagnostic (ICD-10-PCS; principal; 2022-09-20)
DX: C90.00 Multiple myeloma not having achieved remission (principal); I50.33 Acute on chronic diastolic (congestive) heart failure; J18.9 Pneumonia, unspecified organism; N17.0 Acute kidney failure with tubular necrosis; K57.33 Diverticulitis of large intestine without perforation or abscess with bleeding; D61.818 Other pancytopenia; I13.0 Hypertensive heart and chronic kidney disease with heart failure and stage 1 through stage 4 chronic kidney disease, or unspecified chronic kidney disease; E87.1 Hypo-osmolality and hyponatremia; I31.39 Other pericardial effusion (noninflammatory); Z66 Do not resuscitate; F03.90 Unspecified dementia, unspecified severity, without behavioral disturbance, psychotic disturbance, mood disturbance, and anxiety; I48.91 Unspecified atrial fibrillation; W18.39XA Other fall on same level, initial encounter; K76.0 Fatty (change of) liver, not elsewhere classified; K80.20 Calculus of gallbladder without cholecystitis without obstruction; N18.32 Chronic kidney disease, stage 3b; Z99.81 Dependence on supplemental oxygen; Y93.89 Activity, other specified; Y92.89 Other specified places as the place of occurrence of the external cause; Y99.8 Other external cause status; Z51.5 Encounter for palliative care
CPT/HCPCS: 10005; 36415; 36600; 70450; 71045; 71250; 72192; 74176; 76775; 77012; 80048; 80053; 80061; 81001; 82140; 82270; 82570; 82607; 82728; 82746; 82805; 82962; 83036; 83540; 83550; 83605; 83615; 83735; 83880; 83930; 83935; 84100; 84155; 84165; 84300; 84443; 84484; 84550; 85007; 85025; 85027; 85045; 85384; 85610; 85730; 86038; 86704; 86706; 86708; 86803; 86850; 86880; 86900; 86901; 86920; 87040; 87086; 87340; 93005; 93306; 93970; 94640; 97110; 97116; 97163; 97530; C9113; G0378; J0696; J2001; J2250; J2405